=== PATIENT | male | born 1955 | race Hispanic/Latino ===

== ENCOUNTER 2024-08-24 23:07 | Inpatient (IN) | payer OTHER ==
[2024-08-25 01:44] VITALS: BMI 24.7
[2024-08-25] MEDS: Lactated Ringer's 1,000 ML IV SCH ×2 (02:04→06:04)
[2024-08-25] MEDS ORDERED: Ipratropium/Albuterol 3 ML NEB EZPAP PRN (02:16)
[2024-08-25 02:52] LABS: #Basophils 0.05 10x3/uL (0.0-0.2); %Basophils 0.4 % (0.0-1.0); %Eosinophils 1.2 % (0.0-10.0); %Lymphocytes 15.1 % (21.0-51.0); %Monocytes 8.6 % (0.0-10.0); %Neutrophils 74.3 % (42.0-75.0); Hematocrit 41.6 % (42.0-52.0); Hemoglobin 14.9 g/dL (14.0-18.0); Mean Corpuscular HGB CONC 35.8 g/dL (32.0-36.0); Mean Corpuscular Hemoglobin 31.7 pg (27.0-31.0); Mean Corpuscular Volume 88.5 fL (78.0-98.0); Mean Platelet Volume 10.7 fL (7.4-10.4); Platelet Count 222 10x3/uL (130-400)
[2024-08-25 02:56] LABS: Actual Bicarbonate (HCO3v) 16.1 mEq/L (22-28); Base Excess -2.8 mEq/L (-2.0 to +3.0); Calcium, Ionized (venous) 1.06 mmol/L (1.16-1.32); Chloride (VBG) 108 mmol/L (98-106); Hematocrit-VBG 46 % (42.0-52.0); Hemoglobin (Hb) 15.7 g/dL (12.6-17.4); Potassium (VBG) 3.36 mmol/L (3.70-5.30); Sodium 137 mmol/L (133-146)
[2024-08-25 03:11] LABS: Lactic Acid 1.46 mmol/L (0.5-2.2)
[2024-08-25 03:19] LABS: Troponin I 0.048 ng/mL (< 0.028)
[2024-08-25 03:48] LABS: Anion Gap 17 mmol/L (10-20); BUN (Urea Nitrogen) 15 mg/dL (8.4-25.7); Calc. Creatinine Clearance 96 mL/min (70-130); Carbon Dioxide 11 mmol/L (23-31); Chloride 112 mmol/L (98-107); Estimated GFR 96; Glucose 95 mg/dL (83-110); Potassium 3.3 mmol/L (3.5-5.1); Sodium 137 mmol/L (136-145)
[2024-08-25] MEDS: Lactulose 20 GM (30 mL) UDCUP PO SCH ×2 (04:06→09:50)
[2024-08-25] MEDS: Potassium Chloride 20 MEQ TAB PO SCH (06:03)
[2024-08-25 08:40] LABS: Magnesium 1.7 mg/dL (1.6-2.6)
[2024-08-25] MEDS: Aspirin 81 mg Enteric Coated Tablet PO SCH (09:48)
[2024-08-25] MEDS: Lisinopril 20 MG TAB PO SCH (09:48)
[2024-08-25] MEDS: Amlodipine 5 MG TAB PO SCH (09:49)
[2024-08-25] MEDS: Thiamine 100 MG TAB PO SCH (09:49)
[2024-08-25] MEDS: hydrALAZINE 25 MG TAB PO SCH (09:49)
[2024-08-25] MEDS: Clopidogrel Bisulfate 75 MG TAB PO SCH (09:50)
[2024-08-25] MEDS: Enoxaparin 40 MG (0.4 mL) SYRINGE SC SCH (09:50)
[2024-08-25 10:47] LABS: Bacteria/HPF None Seen HPF (None Seen); Bilirubin Negative (Negative); Blood, Urine 3+ (Negative); CAUTI Indications for Culture Alt mental st,lethar; Clarity Turbid (Clear); Glucose, Urine (Dipstick) Normal (Negative); Ketone, Urine 20 mg/dL (Negative); Leukocyte 250 Leu/uL (Negative); Nitrite Negative (Negative); Protein, Urine (Dipstick) 100 mg/dL (Neg-Trace); RBC/HPF Greater than 50 HPF (0-3); Squamous Epithelial 0-3 HPF (0-3); Yeast-Budding 3+ HPF (None Seen); Yeast-Hyphae 1+ HPF (None Seen); pH, Urine 5.5 (5.0-9.0)
[2024-08-25 10:48] LABS: Specific Gravity, Urine 1.058 (1.002-1.036); Transitional Epithelial 0-3 HPF (None Seen)
[2024-08-25 10:49] LABS: Urine Culture Reflex Yes Yes
[2024-08-25] MEDS: Sodium Chloride 0.9% 1,000 ML IV SCH (13:17)
[2024-08-25] MEDS: cefTRIAXone\\ROCEPHIN 1 GM in Sodium Chloride 0.9% 100 ML IVPB SCH (13:18)
[2024-08-25 19:55] LABS: Troponin I 0.043 ng/mL (< 0.028)
[2024-08-25] MEDS: Atorvastatin Calcium 40 MG TAB PO SCH (21:17)
[2024-08-25] MEDS: Lorazepam 2 MG/ML VIAL SLOW IVP PRN (23:17)
[2024-08-25] MEDS ORDERED: Lorazepam 2 MG/ML VIAL SLOW IVP SCH (23:45)
[2024-08-26 05:52] LABS: #Basophils 0.05 10x3/uL (0.0-0.2); %Basophils 0.5 % (0.0-1.0); %Eosinophils 4.3 % (0.0-10.0); %Lymphocytes 15.7 % (21.0-51.0); %Monocytes 8.8 % (0.0-10.0); %Neutrophils 70.2 % (42.0-75.0); Hematocrit 39.9 % (42.0-52.0); Hemoglobin 13.9 g/dL (14.0-18.0); Mean Corpuscular HGB CONC 34.8 g/dL (32.0-36.0); Mean Corpuscular Volume 88.9 fL (78.0-98.0); Mean Platelet Volume 11.2 fL (7.4-10.4); Platelet Count 211 10x3/uL (130-400); RBC Distribution Width 13.4 % (11.5-14.5); Red Blood Cell (RBC) Count 4.49 mill/uL (4.70-6.10)
[2024-08-26 06:05] LABS: Anion Gap 15 mmol/L (10-20); BUN (Urea Nitrogen) 10 mg/dL (8.4-25.7); Calc. Creatinine Clearance 106 mL/min (70-130); Calcium 8.6 mg/dL (7.8-10.44); Carbon Dioxide 14 mmol/L (23-31); Chloride 116 mmol/L (98-107); Estimated GFR 99; Glucose 92 mg/dL (83-110); Magnesium 1.9 mg/dL (1.6-2.6); Potassium 3.7 mmol/L (3.5-5.1); Sodium 141 mmol/L (136-145)
[2024-08-26] MEDS: Levothyroxine Sodium 100 MCG TAB PO SCH (06:07)
[2024-08-26 10:57] LABS: Actual Bicarbonate (HCO3a) 17.7 mEq/L (22-28); Calcium, Ionized (arterial) 1.16 mmol/L (1.12-1.30); Carboxyhemoglobin (COHb) 0.2 gm% (0.0-3.0); Hematocrit-ABG 41 % (42.0-52.0); Hemoglobin (Hb) 14.1 g/dL (14.0-18.0); O2 Tension (PaO2), arterial 95.9 mmHg (> 70.0); pH, Arterial 7.523 (7.35-7.45)
[2024-08-26 10:58] LABS: Puncture Site Left Radial artery
[2024-08-26] MEDS ORDERED: Iopamidol-370 76% 500 ML MDV (1 ML CHARGE) ONE (15:21)
[2024-08-26] MEDS: Ondansetron PF 4 MG/2 ML Vial IVP PRN (21:15)
[2024-08-27 04:50] LABS: #Basophils 0.04 10x3/uL (0.0-0.2); %Basophils 0.4 % (0.0-1.0); %Eosinophils 3.9 % (0.0-10.0); %Lymphocytes 16.8 % (21.0-51.0); %Monocytes 7.8 % (0.0-10.0); %Neutrophils 70.7 % (42.0-75.0); Hematocrit 39.6 % (42.0-52.0); Hemoglobin 13.9 g/dL (14.0-18.0); Mean Corpuscular HGB CONC 35.1 g/dL (32.0-36.0); Mean Corpuscular Hemoglobin 31.2 pg (27.0-31.0); Platelet Count 206 10x3/uL (130-400); RBC Distribution Width 13.3 % (11.5-14.5); Red Blood Cell (RBC) Count 4.45 mill/uL (4.70-6.10)
[2024-08-27 05:12] LABS: Anion Gap 13 mmol/L (10-20); BUN (Urea Nitrogen) 9 mg/dL (8.4-25.7); Calc. Creatinine Clearance 104 mL/min (70-130); Calcium 8.6 mg/dL (7.8-10.44); Carbon Dioxide 14 mmol/L (23-31); Chloride 113 mmol/L (98-107); Estimated GFR 99; Glucose 92 mg/dL (83-110); Magnesium 1.9 mg/dL (1.6-2.6); Potassium 3.3 mmol/L (3.5-5.1); Sodium 137 mmol/L (136-145)
[2024-08-27] MEDS: Acetaminophen 500 MG TAB PO PRN (09:29)
[2024-08-27] MEDS: predniSONE 50 MG TAB PO SCH (15:12)
[2024-08-28 04:37] LABS: Cardiac Risk 2.5 (Less than 4.5)
[2024-08-28] MEDS: predniSONE 50 MG TAB PO SCH (09:48)
[2024-08-28] MEDS: hydrALAZINE 25 MG TAB PO SCH (14:36)
[2024-08-29] MEDS: Amlodipine 5 MG TAB PO SCH (08:36)
[2024-08-29 13:29] LABS: Anion Gap 11 mmol/L (10-20); BUN (Urea Nitrogen) 18 mg/dL (8.4-25.7); Calc. Creatinine Clearance 104 mL/min (70-130); Calcium 8.7 mg/dL (7.8-10.44); Carbon Dioxide 15 mmol/L (23-31); Chloride 114 mmol/L (98-107); Estimated GFR 99; Glucose 116 mg/dL (83-110); Potassium 3.9 mmol/L (3.5-5.1); Sodium 136 mmol/L (136-145)
[2024-08-30] MEDS: predniSONE 20 MG TAB PO SCH (10:08)
[2024-08-30] MEDS: hydrALAZINE 25 MG TAB PO SCH (10:09)
[2024-08-30] MEDS: Amlodipine 10 MG TAB PO SCH (10:09)
[2024-08-30 19:37] LABS: Cytoplasmic (C-ANCA) <1:20 titer (Neg:<1:20); Myeloperoxidase AutoAbs <0.2 units (0.0-0.9); Perinuclear (P-ANCA) <1:20 titer (Neg:<1:20); Proteinase-3 AutoAbs Less than 0.2 units (0.0-0.9)
[2024-08-31 09:55] LABS: Complement-C4 40 mg/dL (15-53)
[2024-08-31 11:44] LABS: ANA Symphony (Qualitative) Negative (Negative); ANA Symphony (Quantitative) 0.2 Ratio (< 0.7 Negative); Mitochondrial Ab 1.1 U/mL (<4 Negative); Thyroid Peroxidase IgG Ab 4.9 IU/mL (<25 Normal); dsDNA IgG Antibody 2.6 IU/mL (<10 Negative)
[2024-09-02 15:24] LABS: #Basophils Less than 0.03 10x3/uL (0.0-0.2); #Eosinophils Less than 0.03 10x3/uL (0.0-0.7); %Basophils 0.1 % (0.0-1.0); %Lymphocytes 7.3 % (21.0-51.0); %Monocytes 4.6 % (0.0-10.0); %Neutrophils 87.4 % (42.0-75.0); Hematocrit 42.1 % (42.0-52.0); Hemoglobin 15.1 g/dL (14.0-18.0); Mean Corpuscular HGB CONC 35.9 g/dL (32.0-36.0); Mean Corpuscular Hemoglobin 31.3 pg (27.0-31.0); Mean Corpuscular Volume 87.2 fL (78.0-98.0); Mean Platelet Volume 10.8 fL (7.4-10.4); Platelet Count 321 10x3/uL (130-400); RBC Distribution Width 13.7 % (11.5-14.5); Red Blood Cell (RBC) Count 4.83 mill/uL (4.70-6.10)
[2024-09-02 16:15] LABS: ALT (SGPT) 41 U/L (8-55); AST (SGOT) 25 U/L (5-34); Albumin 3.6 g/dL (3.4-4.8); Alkaline Phosphatase 49 U/L (40-110); Anion Gap 14 mmol/L (10-20); BUN (Urea Nitrogen) 61 mg/dL (8.4-25.7); Bilirubin, Total 1.1 mg/dL (0.2-1.2); Calc. Creatinine Clearance 67 mL/min (70-130); Calcium 9.1 mg/dL (7.8-10.44); Carbon Dioxide 17 mmol/L (23-31); Chloride 110 mmol/L (98-107); Estimated GFR 74; Globulin 3.5 g/dL (2.4-3.5); Glucose 135 mg/dL (83-110); Magnesium 2.5 mg/dL (1.6-2.6); Potassium 3.8 mmol/L (3.5-5.1); Protein, Total 7.1 g/dL (5.8-8.1); Sodium 137 mmol/L (136-145)
[2024-09-02] MEDS: Lactated Ringer's 1,000 ML IV SCH (17:56)
[2024-09-02 18:12] VITALS: BMI 24.4
[2024-09-02 18:53] LABS: Actual Bicarbonate (HCO3a) 18.8 mEq/L (22-28); Base Excess (BEa) -1.6 mEq/L (-2.0 to +3.0); Calcium, Ionized (arterial) 1.21 mmol/L (1.12-1.30); Hematocrit-ABG 46 % (42.0-52.0); Hemoglobin (Hb) 15.5 g/dL (14.0-18.0); O2 Tension (PaO2), arterial 84.6 mmHg (> 70.0); pH, Arterial 7.533 (7.35-7.45)
[2024-09-02 18:55] LABS: CO2 Tension 22.8 mmHg (35.0-45.0); Puncture Site Left Brachial artery
[2024-09-02 22:23] LABS: Bacteria/HPF None Seen HPF (None Seen); Bilirubin Negative (Negative); Blood, Urine Trace (Negative); CAUTI Indications for Culture Alt mental st,lethar; Clarity Clear (Clear); Glucose, Urine (Dipstick) Normal (Negative); Ketone, Urine Negative (Negative); Leukocyte 75 Leu/uL (Negative); Nitrite Negative (Negative); Protein, Urine (Dipstick) 20 mg/dL (Neg-Trace); RBC/HPF 0-3 HPF (0-3); Specific Gravity, Urine 1.025 (1.002-1.036); Squamous Epithelial 0-3 HPF (0-3); Urobilinogen Normal mg/dL (Less than 2); Yeast-Budding 2+ HPF (None Seen)
[2024-09-02 22:25] LABS: Urine Culture Reflex Yes Yes
[2024-09-03 03:07] LABS: #Basophils Less than 0.03 10x3/uL (0.0-0.2); #Eosinophils Less than 0.03 10x3/uL (0.0-0.7); %Basophils 0.1 % (0.0-1.0); %Eosinophils 0.1 % (0.0-10.0); %Lymphocytes 15.5 % (21.0-51.0); %Monocytes 10.7 % (0.0-10.0); %Neutrophils 72.9 % (42.0-75.0); Hematocrit 40.6 % (42.0-52.0); Hemoglobin 14.1 g/dL (14.0-18.0); Mean Corpuscular HGB CONC 34.7 g/dL (32.0-36.0); Mean Corpuscular Hemoglobin 31.5 pg (27.0-31.0); Mean Corpuscular Volume 90.6 fL (78.0-98.0); Mean Platelet Volume 10.4 fL (7.4-10.4); Platelet Count 269 10x3/uL (130-400); RBC Distribution Width 13.8 % (11.5-14.5); Red Blood Cell (RBC) Count 4.48 mill/uL (4.70-6.10)
[2024-09-03 03:35] LABS: Lactic Acid 1.02 mmol/L (0.5-2.2)
[2024-09-03 03:38] LABS: Anion Gap 12 mmol/L (10-20); BUN (Urea Nitrogen) 57 mg/dL (8.4-25.7); Calc. Creatinine Clearance 75 mL/min (70-130); Calcium 8.8 mg/dL (7.8-10.44); Carbon Dioxide 17 mmol/L (23-31); Chloride 111 mmol/L (98-107); Estimated GFR 85; Glucose 110 mg/dL (83-110); Magnesium 2.5 mg/dL (1.6-2.6); Potassium 3.7 mmol/L (3.5-5.1); Sodium 136 mmol/L (136-145)
[2024-09-03] MEDS: predniSONE 20 MG TAB PO SCH (09:22)
[2024-09-03] MEDS ORDERED: Baclofen 10 MG TAB PO PRN (16:16)
[2024-09-04 04:42] LABS: #Basophils Less than 0.03 10x3/uL (0.0-0.2); %Basophils 0.2 % (0.0-1.0); %Eosinophils 1.4 % (0.0-10.0); %Lymphocytes 16.6 % (21.0-51.0); Hematocrit 39.2 % (42.0-52.0); Hemoglobin 13.6 g/dL (14.0-18.0); Mean Corpuscular HGB CONC 34.7 g/dL (32.0-36.0); Mean Corpuscular Hemoglobin 30.9 pg (27.0-31.0); Mean Corpuscular Volume 89.1 fL (78.0-98.0); Mean Platelet Volume 10.9 fL (7.4-10.4); Platelet Count 240 10x3/uL (130-400); RBC Distribution Width 13.4 % (11.5-14.5)
[2024-09-04 05:24] LABS: Anion Gap 13 mmol/L (10-20); BUN (Urea Nitrogen) 37 mg/dL (8.4-25.7); Calc. Creatinine Clearance 95 mL/min (70-130); Calcium 8.5 mg/dL (7.8-10.44); Carbon Dioxide 18 mmol/L (23-31); Chloride 112 mmol/L (98-107); Estimated GFR 96; Glucose 88 mg/dL (83-110); Magnesium 2.3 mg/dL (1.6-2.6); Potassium 3.7 mmol/L (3.5-5.1); Sodium 139 mmol/L (136-145)
[2024-09-05] MEDS ORDERED: hydrALAZINE 25 MG TAB PER TUBE SCH ×2 (09:00)
[2024-09-05] MEDS: hydrALAZINE 25 MG TAB PER TUBE SCH ×2 (09:18→14:22)
[2024-09-06 06:02] LABS: #Basophils Less than 0.03 10x3/uL (0.0-0.2); %Basophils 0.1 % (0.0-1.0); %Eosinophils 1.5 % (0.0-10.0); %Lymphocytes 17.1 % (21.0-51.0); %Monocytes 7.6 % (0.0-10.0); %Neutrophils 72.8 % (42.0-75.0); Hematocrit 39.1 % (42.0-52.0); Hemoglobin 14.2 g/dL (14.0-18.0); Mean Corpuscular HGB CONC 36.3 g/dL (32.0-36.0); Mean Corpuscular Hemoglobin 31.6 pg (27.0-31.0); Mean Corpuscular Volume 87.1 fL (78.0-98.0); Mean Platelet Volume 10.7 fL (7.4-10.4); Platelet Count 249 10x3/uL (130-400); RBC Distribution Width 13.3 % (11.5-14.5); Red Blood Cell (RBC) Count 4.49 mill/uL (4.70-6.10)
[2024-09-06 06:20] LABS: Anion Gap 13 mmol/L (10-20); BUN (Urea Nitrogen) 27 mg/dL (8.4-25.7); Calc. Creatinine Clearance 101 mL/min (70-130); Calcium 8.5 mg/dL (7.8-10.44); Carbon Dioxide 16 mmol/L (23-31); Chloride 110 mmol/L (98-107); Estimated GFR 98; Glucose 141 mg/dL (83-110); Potassium 3.4 mmol/L (3.5-5.1); Sodium 136 mmol/L (136-145)
[2024-09-06] MEDS: predniSONE 50 MG TAB PO SCH (08:17)
[2024-09-06] MEDS ORDERED: Iopamidol-370 76% 500 ML MDV (1 ML CHARGE) ONE (10:24)
[2024-09-06] MEDS: Fleet Saline Enema 133 ML BOT PR SCH (15:35)
[2024-09-06] MEDS: cefTRIAXone\\ROCEPHIN 1 GM in Sodium Chloride 0.9% 100 ML IVPB SCH (16:33)
[2024-09-06] MEDS: Azithromycin 500 MG in Sodium Chloride 0.9% 250 ML 250 ML IVPB SCH (17:36)
[2024-09-07 05:58] LABS: #Basophils 0.03 10x3/uL (0.0-0.2); %Basophils 0.2 % (0.0-1.0); %Lymphocytes 19.4 % (21.0-51.0); %Monocytes 8.2 % (0.0-10.0); %Neutrophils 70.1 % (42.0-75.0); Hematocrit 40.7 % (42.0-52.0); Hemoglobin 14.5 g/dL (14.0-18.0); Mean Corpuscular HGB CONC 35.6 g/dL (32.0-36.0); Mean Corpuscular Hemoglobin 31.4 pg (27.0-31.0); Mean Corpuscular Volume 88.1 fL (78.0-98.0); Mean Platelet Volume 10.9 fL (7.4-10.4); Platelet Count 247 10x3/uL (130-400); RBC Distribution Width 13.5 % (11.5-14.5); Red Blood Cell (RBC) Count 4.62 mill/uL (4.70-6.10)
[2024-09-07 06:09] LABS: Anion Gap 13 mmol/L (10-20); BUN (Urea Nitrogen) 26 mg/dL (8.4-25.7); Calc. Creatinine Clearance 88 mL/min (70-130); Calcium 8.4 mg/dL (7.8-10.44); Carbon Dioxide 18 mmol/L (23-31); Chloride 108 mmol/L (98-107); Estimated GFR 94; Glucose 94 mg/dL (83-110); Potassium 3.4 mmol/L (3.5-5.1); Sodium 136 mmol/L (136-145)
[2024-09-07] MEDS ORDERED: MD-Gastroview 120 ML BOT ONE (08:56)
[2024-09-07] MEDS: Fleet Saline Enema 133 ML BOT PR SCH (16:22)
[2024-09-07] MEDS: Fleet Saline Enema 133 ML BOT FS SCH (17:03)
[2024-09-08 06:16] LABS: #Basophils Less than 0.03 10x3/uL (0.0-0.2); #Eosinophils Less than 0.03 10x3/uL (0.0-0.7); %Basophils 0.1 % (0.0-1.0); %Eosinophils 0.1 % (0.0-10.0); %Lymphocytes 13.1 % (21.0-51.0); %Monocytes 6.7 % (0.0-10.0); %Neutrophils 79.3 % (42.0-75.0); Hematocrit 39.9 % (42.0-52.0); Hemoglobin 14.3 g/dL (14.0-18.0); Mean Corpuscular HGB CONC 35.8 g/dL (32.0-36.0); Mean Corpuscular Volume 86.6 fL (78.0-98.0); Mean Platelet Volume 11.5 fL (7.4-10.4); Platelet Count 270 10x3/uL (130-400); RBC Distribution Width 13.7 % (11.5-14.5); Red Blood Cell (RBC) Count 4.61 mill/uL (4.70-6.10)
[2024-09-08 06:34] LABS: Phosphorus 3.2 mg/dL (2.3-4.7)
[2024-09-08 06:36] LABS: Anion Gap 17 mmol/L (10-20); BUN (Urea Nitrogen) 34 mg/dL (8.4-25.7); Calc. Creatinine Clearance 73 mL/min (70-130); Calcium 8.4 mg/dL (7.8-10.44); Carbon Dioxide 17 mmol/L (23-31); Chloride 114 mmol/L (98-107); Estimated GFR 82; Glucose 107 mg/dL (83-110); Magnesium 2.3 mg/dL (1.6-2.6); Sodium 145 mmol/L (136-145)
[2024-09-08] MEDS: Pantoprazole 40 MG GRANULES PACKET PO SCH (09:28)
[2024-09-08] MEDS ORDERED: Baclofen 10 MG TAB PER TUBE PRN (10:22)
[2024-09-08] MEDS ORDERED: Lactulose 20 GM (30 mL) UDCUP PER TUBE SCH (21:00)
[2024-09-08] MEDS: Acetaminophen 500 MG TAB PER TUBE PRN (21:14)
[2024-09-08] MEDS: Atorvastatin Calcium 40 MG TAB PER TUBE SCH (21:14)
[2024-09-09] MEDS ORDERED: GUAIFENESIN SF SOLN 200 MG/10 ML UDCUP PER TUBE PRN (02:54)
[2024-09-09] MEDS: Scopolamine 1 mg/72 hour Patch TD SCH (03:22)
[2024-09-09] MEDS: Levothyroxine Sodium 100 MCG TAB PER TUBE SCH (05:48)
[2024-09-09 05:59] LABS: #Basophils 0.03 10x3/uL (0.0-0.2); #Eosinophils Less than 0.03 10x3/uL (0.0-0.7); %Basophils 0.2 % (0.0-1.0); %Eosinophils 0.1 % (0.0-10.0); %Lymphocytes 14.7 % (21.0-51.0); %Neutrophils 75.6 % (42.0-75.0); Hematocrit 41.7 % (42.0-52.0); Hemoglobin 14.6 g/dL (14.0-18.0); Mean Corpuscular Hemoglobin 31.1 pg (27.0-31.0); Mean Corpuscular Volume 88.9 fL (78.0-98.0); Mean Platelet Volume 11.3 fL (7.4-10.4); Platelet Count 298 10x3/uL (130-400); RBC Distribution Width 13.9 % (11.5-14.5); Red Blood Cell (RBC) Count 4.69 mill/uL (4.70-6.10)
[2024-09-09 06:16] LABS: Anion Gap 16 mmol/L (10-20); BUN (Urea Nitrogen) 38 mg/dL (8.4-25.7); Calc. Creatinine Clearance 63 mL/min (70-130); Calcium 8.6 mg/dL (7.8-10.44); Carbon Dioxide 17 mmol/L (23-31); Chloride 116 mmol/L (98-107); Estimated GFR 68; Glucose 123 mg/dL (83-110); Sodium 146 mmol/L (136-145)
[2024-09-09] MEDS: Pantoprazole 40 MG GRANULES PACKET PER TUBE SCH (09:28)
[2024-09-09] MEDS: Thiamine 100 MG TAB PER TUBE SCH (09:29)
[2024-09-09] MEDS: Amlodipine 10 MG TAB PER TUBE SCH (09:29)
[2024-09-09] MEDS: predniSONE 50 MG TAB PER TUBE SCH (09:30)
[2024-09-09] MEDS: Aspirin Chewable 81 MG TAB PER TUBE SCH (09:30)
[2024-09-09] MEDS: Clopidogrel Bisulfate 75 MG TAB PER TUBE SCH (09:31)
[2024-09-09] MEDS: Lisinopril 20 MG TAB PER TUBE SCH (09:31)
[2024-09-09] MEDS: Polyethylene Glycol 3350 17 GM Packet PER TUBE SCH (09:31)
[2024-09-09] MEDS: metroNIDAZOLE 250 MG TAB PER TUBE SCH (16:35)
[2024-09-09] MEDS: metroNIDAZOLE 500 MG TAB PER TUBE SCH (22:10)
[2024-09-10] MEDS ORDERED: Sodium Bicarb 50 MEQ/50 ML Abboject 8.4% SYRINGE ONE (02:50)
[2024-09-10] MEDS ORDERED: EPINEPHrine 1 MG/10 ML Abboject SYRINGE ONE (02:50)
[2024-09-10] MEDS ORDERED: Calcium Chloride 1 GM/10 ML Abboject SYRINGE ONE (02:50)
[2024-09-10 03:21] LABS: Base Excess (BEa) -21.4 mEq/L (-2.0 to +3.0); Calcium, Ionized (arterial) 1.48 mmol/L (1.12-1.30); Carboxyhemoglobin (COHb) 0.3 gm% (0.0-3.0); Hematocrit-ABG 42 % (42.0-52.0); Hemoglobin (Hb) 14.4 g/dL (14.0-18.0); Potassium - ABG Lab 3.85 mmol/L (3.70-5.30)
[2024-09-10 03:22] LABS: pH, Arterial 6.848 (7.35-7.45)
[2024-09-10 03:23] LABS: Actual Bicarbonate (HCO3a) 13.6 mEq/L (22-28); Puncture Site Right Radial artery
[2024-09-10] MEDS: NOREPINEPHRINE 8 MG/250 ML-D5W 250 ML ONE (04:00)
[2024-09-10 04:01] LABS: Actual Bicarbonate (HCO3a) 16.2 mEq/L (22-28); Base Excess (BEa) -15.2 mEq/L (-2.0 to +3.0); Calcium, Ionized (arterial) 1.55 mmol/L (1.12-1.30); Carboxyhemoglobin (COHb) 0.1 gm% (0.0-3.0); Hematocrit-ABG 41 % (42.0-52.0); Hemoglobin (Hb) 13.8 g/dL (14.0-18.0); O2 Tension (PaO2), arterial 81.6 mmHg (> 70.0); Potassium - ABG Lab 3.64 mmol/L (3.70-5.30)
[2024-09-10 04:04] LABS: CO2 Tension 62.9 mmHg (35.0-45.0); pH, Arterial 7.028 (7.35-7.45)
[2024-09-10 04:08] LABS: Hematocrit 36.9 % (42.0-52.0); Hemoglobin 11.9 g/dL (14.0-18.0); Mean Corpuscular HGB CONC 32.2 g/dL (32.0-36.0); Mean Corpuscular Hemoglobin 31.5 pg (27.0-31.0); Mean Corpuscular Volume 97.6 fL (78.0-98.0); Mean Platelet Volume 12.2 fL (7.4-10.4); Platelet Count 183 10x3/uL (130-400); RBC Distribution Width 14.3 % (11.5-14.5); Red Blood Cell (RBC) Count 3.78 mill/uL (4.70-6.10)
[2024-09-10] MEDS ORDERED: Vasopressin In 0.9 % NaCl 40 UNIT in Premix 1 BAG IV SCH (04:15)
[2024-09-10 04:34] LABS: Band 4 % (5-11); Hypochromia SLIGHT = 6-15 cells HPF (0-5); Lymphocytes 23 % (21-51); Monocytes 6 % (0-10); Neutrophil 67 % (42-75); Platelet Adequacy Comment Platelets Normal; Polychromasia SLIGHT = 2-3 cells HPF (0-2)
[2024-09-10 04:37] LABS: ALT (SGPT) 139 U/L (8-55); AST (SGOT) 136 U/L (5-34); Albumin 2.2 g/dL (3.4-4.8); Alkaline Phosphatase 49 U/L (40-110); Anion Gap 28 mmol/L (10-20); BUN (Urea Nitrogen) 35 mg/dL (8.4-25.7); Bilirubin, Total 0.6 mg/dL (0.2-1.2); Calc. Creatinine Clearance 52 mL/min (70-130); Calcium 8.8 mg/dL (7.8-10.44); Carbon Dioxide 20 mmol/L (23-31); Chloride 111 mmol/L (98-107); Estimated GFR 55; Globulin 2.3 g/dL (2.4-3.5); Glucose 329 mg/dL (83-110); Lactic Acid 13.66 mmol/L (0.5-2.2); Potassium 4.5 mmol/L (3.5-5.1); Protein, Total 4.5 g/dL (5.8-8.1); Sodium 154 mmol/L (136-145)
[2024-09-10 04:42] LABS: Troponin I 1.036 ng/mL (< 0.028)
[2024-09-10] MEDS ORDERED: Dextrose 50% Abboject 50 ML SYRINGE SLOW IVP PRN (04:51)
[2024-09-10] MEDS ORDERED: Dextrose 5% in Water 1,000 ML IV PRN (04:51)
[2024-09-10] MEDS ORDERED: Insulin Lispro 100 UNIT/ML 10 ML VIAL SC PRN ×2 (04:51)
[2024-09-10] MEDS ORDERED: Glucagon 1 MG/ML KIT IM PRN (04:51)
[2024-09-10] MEDS ORDERED: Electrolyte Replacement Protocol 1 EACH FS PRN (04:52)
[2024-09-10] MEDS ORDERED: Lorazepam 2 MG/ML VIAL SLOW IVP PRN ×2 (05:00→11:45)
[2024-09-10] MEDS ORDERED: Propofol BOLUS 1,000 MG/100 ML VIAL IV PRN (05:00)
[2024-09-10] MEDS ORDERED: Morphine 2 MG/ML VIAL SLOW IVP PRN (05:00)
[2024-09-10] MEDS ORDERED: Propofol 1,000 MG/100 ML VIAL IV PRN (05:00)
[2024-09-10] MEDS ORDERED: EPINEPHrine 4 MG in Dextrose 5% in Water 250 ML IV SCH (05:00)
[2024-09-10] MEDS ORDERED: Vasopressin 20 UNITS in Sodium Chloride 0.9% 50 ML IV SCH (05:00)
[2024-09-10] MEDS ORDERED: Fentanyl BOLUS 250 ML IVPB PRN (05:00)
[2024-09-10] MEDS ORDERED: Phenylephrine 40 MG/NS 250 ML 250 ML IVPB SCH (05:00)
[2024-09-10] MEDS ORDERED: Fentanyl CADD 100 ML IV SCH (05:00)
[2024-09-10] MEDS ORDERED: DISCONTINUE PREVIOUS NARCOTIC PAIN MEDICATIONS AND BENZODIAZEPINES FS SCH (05:00)
[2024-09-10 06:42] LABS: Lactic Acid 14.75 mmol/L (0.5-2.2)
[2024-09-10] MEDS: NOREPINEPHRINE 8 MG/250 ML-D5W 250 ML IVPB SCH (07:33)
[2024-09-10] MEDS: Ipratropium/Albuterol 3 ML NEB NEB SCH (07:39)
[2024-09-10 07:57] LABS: Base Excess (BEa) -18.8 mEq/L (-2.0 to +3.0); CO2 Tension 31.6 mmHg (35.0-45.0); Calcium, Ionized (arterial) 1.34 mmol/L (1.12-1.30); Carboxyhemoglobin (COHb) 0.3 gm% (0.0-3.0); Hematocrit-ABG 44 % (42.0-52.0); Hemoglobin (Hb) 14.9 g/dL (14.0-18.0); O2 Tension (PaO2), arterial 131.2 mmHg (> 70.0); Potassium - ABG Lab 3.27 mmol/L (3.70-5.30)
[2024-09-10] MEDS: Ampicillin/Sulbactam 3 GM in Sodium Chloride 0.9% 100 ML IVPB SCH (07:59)
[2024-09-10] MEDS: Lactated Ringer's 1,000 ML IV SCH (07:59)
[2024-09-10 08:02] LABS: Actual Bicarbonate (HCO3a) 9.7 mEq/L (22-28); Puncture Site Right Radial artery
[2024-09-10] MEDS: Ventilator Sedation Protocol 1 EACH FS ONE (08:02)
[2024-09-10] MEDS: predniSONE 20 MG TAB PER TUBE SCH (08:03)
[2024-09-10] MEDS: Pantoprazole 40 MG VIAL IVP SCH (09:41)
[2024-09-10 10:28] VITALS: BP 93/63
[2024-09-10] MEDS: Phenylephrine 40 MG/NS 250 ML 40 MG in Premix 1 BAG IVPB SCH (10:37)
[2024-09-10] MEDS ORDERED: Sodium Bicarbonate 140 MEQ in Dextrose 5% in Water 1,000 ML IV SCH (11:45)
[2024-09-10] MEDS ORDERED: Morphine 4 MG/ML VIAL SLOW IVP PRN (11:45)
[2024-09-10] MEDS ORDERED: Glycopyrrolate 0.4 MG/ 2 ML VIAL SLOW IVP PRN (11:50)
[2024-09-10] MEDS ORDERED: Hydrocortisone Sod Succ/PF 100 mg/2 ml Vial IVP SCH (12:00)
[2024-09-10 12:25] VITALS: TEMP 98.1
[2024-09-13 14:39] LABS: pH, Arterial 7.104 (7.35-7.45)
== END 2024-09-10 13:25 | disposition expired | DRG 64 ==
LOC: EEVIPCON 08-25 01:18 → 2NO 08-25 01:18 → OBSVTOIN 08-26 13:58 → T4-A 08-30 18:26 → CCU 09-10 03:53
PROVIDERS: ADMIT Internal Medicine; ATTEND Internal Medicine
PROC: 4A133R1 Monitoring of Arterial Saturation, Peripheral, Percutaneous Approach (ICD-10-PCS; 2024-08-26)
PROC: 4A00X4Z Measurement of Central Nervous Electrical Activity, External Approach (ICD-10-PCS; principal; 2024-08-30)
PROC: 0BH17EZ Insertion of Endotracheal Airway into Trachea, Via Natural or Artificial Opening (ICD-10-PCS; 2024-09-10)
PROC: 0DH67UZ Insertion of Feeding Device into Stomach, Via Natural or Artificial Opening (ICD-10-PCS; 2024-09-10)
PROC: 3E0G76Z Introduction of Nutritional Substance into Upper GI, Via Natural or Artificial Opening (ICD-10-PCS; 2024-09-10)
PROC: 05HY33Z Insertion of Infusion Device into Upper Vein, Percutaneous Approach (ICD-10-PCS; 2024-09-10)
PROC: 3E03329 Introduction of Other Anti-infective into Peripheral Vein, Percutaneous Approach (ICD-10-PCS; 2024-09-10)
PROC: 3E03329 Introduction of Other Anti-infective into Peripheral Vein, Percutaneous Approach (ICD-10-PCS; 2024-09-10)
PROC: 3E033XZ Introduction of Vasopressor into Peripheral Vein, Percutaneous Approach (ICD-10-PCS; 2024-09-10)
PROC: 5A1935Z Respiratory Ventilation, Less than 24 Consecutive Hours (ICD-10-PCS; 2024-09-10)
DX: I63.513 Cerebral infarction due to unspecified occlusion or stenosis of bilateral middle cerebral arteries (principal); A41.9 Sepsis, unspecified organism; G93.41 Metabolic encephalopathy; J18.9 Pneumonia, unspecified organism; R65.21 Severe sepsis with septic shock; J69.0 Pneumonitis due to inhalation of food and vomit; J96.00 Acute respiratory failure, unspecified whether with hypoxia or hypercapnia; E87.4 Mixed disorder of acid-base balance; K56.609 Unspecified intestinal obstruction, unspecified as to partial versus complete obstruction; K56.7 Ileus, unspecified; E87.0 Hyperosmolality and hypernatremia; I5A Non-ischemic myocardial injury (non-traumatic); I67.7 Cerebral arteritis, not elsewhere classified; Z66 Do not resuscitate; Z51.5 Encounter for palliative care; R74.01 Elevation of levels of liver transaminase levels; I10 Essential (primary) hypertension; E03.9 Hypothyroidism, unspecified; R13.12 Dysphagia, oropharyngeal phase; R33.9 Retention of urine, unspecified; B37.9 Candidiasis, unspecified; E78.5 Hyperlipidemia, unspecified; Z87.891 Personal history of nicotine dependence; K59.00 Constipation, unspecified
CPT/HCPCS: 36415; 36416; 36600; 70450; 70496; 70498; 70551; 71045; 71275; 74018; 74177; 74250; 80048; 80053; 80061; 80307; 81001; 82140; 82607; 82805; 83516; 83605; 83690; 83735; 83880; 84100; 84145; 84443; 84484; 85025; 85379; 86037; 86038; 86141; 86160; 86225; 86376; 87040; 87077; 87086; 87428; 93005; 93306; 94002; 94640; 95700; 95711; 95957; 96372; 96374; 96375; 96376; G0378; J0171; J0295; J0360; J0456; J0696; J1650; J2060; J2405; J2470; J7030; J7050; J7120; J7512; J7620; Q9963; Q9967